=== PATIENT | female | born 1980 | race Caucasian/White ===

== ENCOUNTER 2018-01-09 10:08 | Emergency (ER) | payer MEDICAID ==
[~2018-01-09] VITALS: Ht 157.5 cm; Wt 60.5 kg
[2018-01-09 10:12] VITALS: BP 131/91
[2018-01-09] MEDS ORDERED: dexamethasone sod phosphate 10mg/ml inj IM STA (10:35)
[2018-01-09] MEDS ORDERED: AMOX500C2 PO (10:35)
[2018-01-09] MEDS ORDERED: ACET-3067 PO (10:35)
[2018-01-09] MEDS ORDERED: ketorolac trometh inj. 60 MG/2 ML VIAL IM ONE (10:35)
== END 2018-01-09 11:03 | disposition home or self-care (01) ==
LOC: ER 10:10
DX: J02.9 Acute pharyngitis, unspecified (principal); J35.1 Hypertrophy of tonsils
CPT/HCPCS: 96372; 99284; J1100; J1885